=== PATIENT | male | born 1945 | race Caucasian/White ===

== ENCOUNTER 2020-06-03 15:59 | Emergency (ER) | payer OTHER ==
[~2020-06-03] VITALS: Ht 182.9 cm; Wt 81.7 kg
--- NOTE | ~2020-06-03 | EMS ---
[address] [address] EMS Patient Care Report Name: YUNIOR WU Room #: PRE M.R.#: [id number] Admission: Attend Phys: Discharge: Date of : 47 Report #: [id number] THIS REPORT FOR: //name// Report Transmitted: 06/03/2020 15:33 EMS Care Summary [place], [place]/[facility] Incident [id number] @ 06/03/2020 15:29 Incident Location [address] [place] [address] Patient YUNIOR WU Male, 75 Years 1945 Patient Address [address] [place] [address] Patient History Sepsis,Myocardial Infarction ([place]), Patient Medications Furosemide, Diltiazem, Cephalexin, Losartan, Apixaban, Doxazosin, Labetalol, Isosorbide, Chief Complaint SUDDEN GENERALIZED WEAKNESS Disposition Transported Lights/[place] Dispatch Reason Sick Person Transported To [facility] Narrative M42 ARRIVES TO FIND 75 Y/O M PT. PT HAS BEEN FOUND BY HIS SITTING NAKED ON HIS WALKER IN THE KITCHEN, UNABLE TO MOVE. PT IS UNABLE TO SMILE. PT IS UNABLE TO HOLD UP HIS ARMS. PT STATES HE HAS BEEN THERE ABOUT AN HOUR. PT'S STATES SHE LAST SAW PT NORMAL LAST NIGHT AROUND DINNER TIME. PT COMPLAINIS OF PAIN TO HIS RIGHT SIDE WHERE HE WAS SLUMPED AGAINST HIS WALKER. [address] [place] [address] EMS Patient Care Report Name: YUNIOR WU Room #: PRE M.R.#: [id number] Admission: Attend Phys: Discharge: Date of : 47 Report #: [id number] ASSESSMENTS AND TREATMENTS NOTED. PT MOVED TO COT VIA [employer] TENDER. PT MOVED TO AMBULANCE. PT TRANSPORTED. M42 ARRIVES AT DESTINATION. PT MOVED TO BED IN ROOM AT DESTINATION VIA DRAWSHEET METHOD. PT CARE TRANSFERRED. M42 RETURNS TO SERVICE. Initial Vitals @15:51P: 156,BP: 147/97,CO: 1,SpO2: 95, @15:42P: 69,R: 18,BP: 174/85,Pain: 10/10,GCS: 15,Glucose: 162,CO: 2,SpO2: 91,Revised Trauma: 12, Assessments @15:40MENTAL:Person Oriented,Time Oriented,Place Oriented,Event Oriented,SKIN:HEENT:LUNG SOUNDS:ABDOMEN:PELVIS//GI:EXTREMITIES:Left Leg: Weakness,Right Arm: Weakness,Left Arm: Weakness,Right Leg: Weakness,PULSE:NEURO:Weakness Right-Sided,Weakness Left-Sided,@15:50MENTAL:No Abnormalities,SKIN:No Abnormalities,HEENT:Head/Face: Other,Eyes: No Abnormalities,Neck/Airway: No Abnormalities,LUNG SOUNDS:General: No Abnormalities,Left Upper: No Abnormalities,Right Upper: No Abnormalities,Left Lower: No Abnormalities,Right Lower: No Abnormalities,ABDOMEN:General: No Abnormalities,Left Upper: No Abnormalities,Right Upper: No Abnormalities,Left Lower: No Abnormalities,Right Lower: No Abnormalities,PELVIS//GI:No Abnormalities,EXTREMITIES:Left Arm: Weakness,Left Leg: Weakness,Right Leg: Weakness,Right Arm: Weakness,PULSE:NEURO:Weakness Right-Sided,Weakness Left-Sided,Abnormal Gait, Impression Generalized Weakness Procedures @15:42Saline Lock 0cc (18 ga) Site: Forearm-LeftResponse: UnchangedSucceeded@15:423-Lead ECGResponse: UnchangedSucceeded@15:40ALS AssessmentResponse: UnchangedSucceeded@15:50Stroke AlertResponse: Unchanged Timeline 15:26,Call Received 15:26,Dispatch Notified 15:29,Dispatched 15:29,En Route 15:32,On Scene 15:40,At Patient 15:40,ALS Assessment,Response: UnchangedSucceeded, 15:42,Saline Lock 0cc 18 ga Site: Forearm-Left,Response: UnchangedSucceeded, 15:42,3-Lead ECG,Response: UnchangedSucceeded, 15:42,BP: 174/85 M,PULSE: 69,RR: 18 R,SPO2: 91 Ox,ETCO2: ,B,PAIN: 10,GCS: 15, 15:49,Depart Scene [address] [address] EMS Patient Care Report Name: YUNIOR WU Room #: PRE M.R.#: [id number] Admission: Attend Phys: Discharge: Date of : 47 Report #: [id number] 15:50,Stroke Alert,Response: Unchanged 15:51,BP: 147/97 M,PULSE: 156,RR: R,SPO2: 95 Ox,ETCO2: ,BG: ,PAIN: ,GCS: , 15:55,At Destination 16:07,Call Closed Disclaimer v1.1 Copyright 2020 [employer] This EMS Care Summary contains data elements from the applicable legal record (which may be displayed differently). It is designed to provide pertinent information for the following purposes: continuity of care, clinical quality, and state data reporting. The complete legal record is available to ED staff and administrators of the receiving hospital in [employer] Patient Tracker. All data is provided "as is."
[2020-06-03 16:31] LABS: ABSOLUTE NEUTROPHILS 17.6 thou/uL (1.4-8.2); BASOPHILS 0.4 % (0.0-2.0); EOSINOPHILS 0.2 % (0.0-3.0); HEMATOCRIT 49.8 % (42.0-52.0); HEMOGLOBIN 16.8 gm/dL (14.0-18.0); LYMPHOCYTES 2.7 % (24.0-44.0); MCH 30.8 pg (26.0-34.0); MCHC 33.8 g/dL (28.0-37.0); MCV 91.1 fL (80.0-100.0); MONOCYTES 7.4 % (1.0-8.0); PLATELET COUNT 277 thou/uL (150-400); POLYS 89.3 % (36.0-66.0); RBC 5.46 mil/uL (4.50-6.00); RDW 14.2 % (10.5-14.5); WBC 19.7 thou/uL (4.0-11.0)
[2020-06-03 16:40] LABS: BE(vivo) -3.4 mmol/L (-2 to +3); HCO3 20.6 mmol/L (22.0-26.0); PCO2 35.1 mmHg (35.0-45.0); PO2 79.1 mmHg (80.0-100.0); pH 7.387 (7.360-7.450); sO2 95.7 % (92.0-98.0)
[2020-06-03 16:43] LABS: CALCIUM 9.5 mg/dL (8.5-10.1); CREATININE 2.6 mg/dL (0.7-1.3); POTASSIUM 4.4 mmol/L (3.5-5.1)
[2020-06-03 16:49] LABS: ALBUMIN 3.7 g/dL (3.4-5.0); DIRECT BILIRUBIN 0.3 mg/dL (<0.1-0.2); TOTAL BILIRUBIN 1.1 mg/dL (0.2-1.0); TOTAL PROTEIN 8.7 g/dL (6.4-8.2)
[2020-06-03 16:54] LABS: APTT 23.3 Seconds (24.5-32.8); INR 1.2; PROTIME 12.6 Seconds (9.3-11.4)
[2020-06-03 23:05] VITALS: BP 134/96
--- NOTE | 2020-06-04 09:08 | EKG ---
[facility] [place] [address] ELECTROCARDIOGRAM REPORT Name: YUNIOR WU Room #: [facility].#: [id number] Admission: 06/03/20 Attend Phys: Discharge: 06/03/20 Date of : 47 Report #: [id number] THIS REPORT FOR: cc: Gladys Alaniz MD, Emily G. MD Santiago, Patrick MD [facility] ~ THIS REPORT FOR: //name// [facility] ED Test Date: 2020-06-03 Test Time: 18:07:26 Pat Name: YUNIOR WU Department: Room: Gender: Estate Planning Director: [facility] : 1945 Requested By: Rosie Lam Order Number: [id number] MD: Colten Wild Measurements Intervals [place] Rate: 151 P: NE: QRS: 22 QRSD: 112 T: 177 QT: 269 QTc: 427 Interpretive Statements Atrial fibrillation with rapid V-rate LVH with secondary repolarization abnormality No previous ECG available for comparison Electronically Signed On 06-04-2020 9:08:43 [employer]UTTER by Colten Wild [email or web address] <ELECTRONICALLY SIGNED> By: Colten Wild MD, FACC [id number] Colten Wild MD, [facility] /EPI
== END 2020-06-03 22:39 | disposition short-term general hospital (02) ==
LOC: ER 15:59
PROVIDERS: Emergency Medicine
DX: I48.0 Paroxysmal atrial fibrillation (principal); N17.9 Acute kidney failure, unspecified; L03.116 Cellulitis of left lower limb; A41.9 Sepsis, unspecified organism; R33.9 Retention of urine, unspecified; M62.82 Rhabdomyolysis; E87.2 Acidosis; I50.9 Heart failure, unspecified; R77.8 Other specified abnormalities of plasma proteins